=== PATIENT | female | born 2000 | race Caucasian/White ===

== ENCOUNTER 2019-01-22 05:22 | Day surgery (SDC) | payer OTHER ==
[~2019-01-22] VITALS: Ht 162.6 cm; Wt 53.0 kg
[2019-01-22] VITALS (13 sets, daily range): BP systolic 111–123; BP diastolic 70–82; PULSE 80–87; RESP 13–25; Ht 162.6 cm; Wt 53.0 kg
[2019-01-22] MEDS ORDERED: LACTATED RINGER'S 1,000 ML IV SCH (06:30)
[2019-01-22] MEDS ORDERED: PROPOFOL 20 ML ONE (07:47)
[2019-01-22] MEDS ORDERED: ROCURONIUM 50 MG INJ ONE (07:47)
[2019-01-22] MEDS ORDERED: MIDAZOLAM 1 MG/ML 2 ML INJ ONE (07:47)
[2019-01-22] MEDS ORDERED: LIDOCAINE 2% (SDV) 5 ML INJ ONE (07:47)
[2019-01-22] MEDS ORDERED: CEFAZOLIN 1 GM INJ ONE (07:55)
[2019-01-22] MEDS ORDERED: ONDANSETRON 4 MG INJ ONE (07:56)
[2019-01-22] MEDS ORDERED: HYDROmorphONE 1 MG/5 ML IV SYRINGE IV PRN (08:00)
[2019-01-22] MEDS ORDERED: ONDANSETRON 4 MG INJ IV PRN (08:00)
[2019-01-22] MEDS ORDERED: LABETALOL HCL 20MG INJ IV PRN (08:00)
[2019-01-22] MEDS ORDERED: ROPIVACAINE 0.5 % 30 ML VIAL ONE (08:39)
[2019-01-22] MEDS ORDERED: SUGAMMADEX SODIUM 200 MG/2 ML VIAL IV ONE (08:59)
[2019-01-22] MEDS: HYDROmorphONE 1 MG/5 ML IV SYRINGE IV PRN ×2 (09:19→09:42)
== END 2019-01-22 10:38 | disposition home or self-care (01) ==
LOC: SDS 05:22
PROVIDERS: ATTEND Obstetrics & Gynecology
DX: N80.1 Endometriosis of ovary (principal)
CPT/HCPCS: 58662; 88305; J0690; J1170; J2250; J2405; J2795; J3010; Z7512; Z7610